=== PATIENT | male | born 1980 | race American Indian/Alaskan Native ===

== ENCOUNTER 2016-11-28 09:56 | Emergency (ER) | payer MEDICARE ==
[2016-11-28 10:21] VITALS: BP 153/90
[2016-11-28] MEDS ORDERED: DECADRON IM STA (11:27)
[2016-11-28] MEDS ORDERED: BENADRYL IM ONE (11:27)
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
== END 2016-11-28 12:28 | disposition home or self-care (01) ==
LOC: ED 09:56
DX: L29.9 Pruritus, unspecified (principal); L30.9 Dermatitis, unspecified; F20.9 Schizophrenia, unspecified; F17.200 Nicotine dependence, unspecified, uncomplicated
CPT/HCPCS: 96372; 99282; J1100; J1200